=== PATIENT | male | born 1960 | race American Indian/Alaskan Native ===

== ENCOUNTER 2022-05-08 21:08 | Emergency (ER) | payer MEDICARE ==
--- NOTE | 2022-05-09 07:59 | XRay Report ---
ABDOMEN 1 VIEW(S) INDICATION / CLINICAL INFORMATION: no bm, r/o constipation. COMPARISON: None available. FINDINGS: TUBES / LINES: None. BOWEL GAS PATTERN: No significant abnormality. FREE AIR / EXTRALUMINAL GAS: None seen. ADDITIONAL FINDINGS: No significant additional findings. IMPRESSION: No significant abnormality. Signer Name: Mike Watkins Jr, MD Signed: 05/09/2022 7:55 AM Workstation Name: [id number]
[2022-05-09] MEDS ORDERED: MAGNESIUM CITRATE 300 ML ORAL LIQD PO ONE (09:05)
--- NOTE | 2022-05-09 09:05 | Emergency Department Report ---
ED Abdominal Pain HPI - General Chief Complaint: Abdominal Pain Stated Complaint: ABD PAIN/CONSTIPATION Time Seen by Provider: 05/09/22 07:11 Source: EMS Mode of arrival: Stretcher Limitations: No Limitations - History of Present Illness Initial Comments: 61-year-old black male with a past medical history of hypertension presents to the emergency department for inability to have a bowel movement in the past 4 days. He states that he generally has a bowel movement daily but for the past 4 days he has not had any bowel movement. He denies abdominal pain but states that this is just abnormal for him. He also denies nausea, vomiting, fever, dysuria, and penile discharge. He states that he has not taken any medication for his symptoms. MD Complaint: other (Unable to have bowel movement) -: Gradual, days(s) (4) Severity scale (0 -10): 0 Associated Symptoms: constipation. denies: nausea, vomiting, fever, chills, dysuria, hematemesis, hematochezia, melena, hematuria, anorexia - Related Data Allergies Allergy/AdvReac Type Severity Reaction Status Date / Time sulfamethoxazole Allergy Hives Verified 05/08/22 21:27 [From Bactrim] trimethoprim [From Bactrim] Allergy Hives Verified 05/08/22 21:27 ED Review of Systems ROS: Stated complaint: ABD PAIN/CONSTIPATION Other details as noted in HPI Comment: All other systems reviewed and negative Constitutional: denies: chills, fever Eyes: denies: vision change ENT: denies: congestion Respiratory: denies: shortness of breath Cardiovascular: denies: chest pain, palpitations Gastrointestinal: constipation. denies: abdominal pain, nausea, vomiting, diarrhea, hematemesis, melena, hematochezia Genitourinary: denies: urgency, dysuria, frequency, hematuria, discharge Musculoskeletal: denies: back pain Skin: denies: rash, lesions Neurological: denies: headache, weakness ED Past Medical Hx - Past Medical History Previous Medical History?: Yes Hx Hypertension: Yes Hx HIV: Yes - Surgical History Past Surgical History?: No - Social History Smoking Status: Unknown if ever smoked ED Physical Exam - General Limitations: No Limitations General appearance: alert, in no apparent distress - Head Head exam: Present: atraumatic, normocephalic - Eye Eye exam: Present: normal appearance. Absent: conjunctival injection - Neck Neck exam: Present: normal inspection, full ROM. Absent: tenderness - Respiratory Respiratory exam: Present: normal lung sounds bilaterally. Absent: respiratory distress, wheezes, rales, rhonchi, stridor, chest wall tenderness - Cardiovascular Cardiovascular Exam: Present: tachycardia, normal heart sounds - GI/Abdominal GI/Abdominal exam: Present: soft, normal bowel sounds. Absent: distended, tenderness, guarding, rebound, rigid - Extremities Exam Extremities exam: Present: normal inspection, full ROM, normal capillary refill. Absent: pedal edema, joint swelling, calf tenderness - Back Exam Back exam: Present: normal inspection. Absent: CVA tenderness (R), CVA tenderness (L), vertebral tenderness - Neurological Exam Neurological exam: Present: alert, oriented X3, normal gait - Psychiatric Psychiatric exam: Present: normal affect, normal mood - Skin Skin exam: Present: warm, dry, intact, normal color ED Course Vital Signs 05/08/22 21:27 Temperature 98.8 F Pulse Rate 102 H Respiratory 18 Rate Blood Pressure 140/95 O2 Sat by Pulse 99 Oximetry ED Medical Decision Making - Radiology Data Radiology results: report reviewed, image reviewed KUB: ADDITIONAL FINDINGS: No significant additional findings. IMPRESSION: No significant abnormality. - Medical Decision Making 61-year-old black male with a past medical history of hypertension presents to the emergency department for inability to have a bowel movement in the past 4 days. He states that he generally has a bowel movement daily but for the past 4 days he has not had any bowel movement. He denies abdominal pain but states that this is just abnormal for him. He also denies nausea, vomiting, fever, dysuria, and penile discharge. He states that he has not taken any medication for his symptoms. KUB unremarkable but will give patient one-time dose of mag citrate to help start bowel movement. He is advised to increase intake of fluids and dietary fiber and follow-up with his primary care provider if no improvement or worsening symptoms. He is advised to return to the emergency department as need ed. He verbalizes understanding of and agreement with plan of care. Critical care attestation.: If time is entered above; I have spent that time in minutes in the direct care of this critically ill patient, excluding procedure time. ED Disposition Clinical Impression: Infrequent bowel movements Disposition: HOME / SELF CARE / HOMELESS Is pt being admited?: No Does the pt Need Aspirin: No Condition: Stable Instructions: Constipation, Adult, [id number], High-Fiber Diet Additional Instructions: Increase intake of noncaffeinated fluids. Increase dietary fiber. Follow-up with your primary care provider if no improvement or worsening symptoms. Return to the emergency department as needed. Referrals: NARINDER CASTELLANOS MD [Staff Physician] - 3-5 Days Time of Disposition: 09:07
[2022-05-09] MEDS ORDERED: MAGNESIUM CITRATE 300 ML ORAL LIQD PO SCH (09:30)
[2022-05-09 10:00] VITALS: BP 118/63
== END 2022-05-09 10:21 | disposition home or self-care (01) ==
LOC: ED 21:08
DX: R15.0 Incomplete defecation (principal); I10 Essential (primary) hypertension; Z21 Asymptomatic human immunodeficiency virus [HIV] infection status; Z91.09 Other allergy status, other than to drugs and biological substances
CPT/HCPCS: 74018; 99283